=== PATIENT | male | born 1970 | race Caucasian/White ===

== ENCOUNTER 2017-09-26 18:29 | Inpatient (IN) | payer BC ==
[~2017-09-26] VITALS: Ht 182.9 cm; Wt 140.8 kg
[~2017-09-26 18:29] MED LIST: ZITHROMAX250 MG PO
[2017-09-26 19:48] LABS: HEMATOCRIT 43.1 % (38.0-50.0); HEMOGLOBIN 14.3 G/DL (12.5-16.6); MCH 31.9 PG (29.0-34.0); MCHC 33.2 G/DL (30.0-36.0); MCV 96.2 FL (86-99); PLATELET COUNT 172 K/uL (156-360); RBC DIS.WIDTH-CV 14.1 % (11.8-14.6); RBC DIS.WIDTH-SD 49.9 % (39-53); RED BLOOD COUNT 4.48 M/uL (4.00-5.50); WHITE BLOOD COUNT 8.7 K/uL (4.1-10.2)
[2017-09-26 19:58] LABS: ALBUMIN 3.7 g/dL (3.2-4.8); CHLORIDE 106 mEq/L (99-109); POTASSIUM 3.2 mEq/L (3.7-5.4); SODIUM 142 mEq/L (136-147)
[2017-09-26 20:01] LABS: GLUCOSE 99 mg/dL (70-99); TOTAL PROTEIN 6.8 g/dL (6.4-8.3)
[2017-09-26 20:03] LABS: TOTAL BILIRUBIN 1.5 mg/dL (0.0-1.0)
[2017-09-26 20:04] LABS: ALKALINE PHOSPHATASE 117 IU/L (3-129); CREATININE 1.3 mg/dL (0.6-1.3); GFR ESTIMATE (CALCULATED) > 59 mL/min/ (58.99-99999)
[2017-09-26 20:05] LABS: UREA NITROGEN (BUN) 15 mg/dL (9-23)
[2017-09-26 20:06] LABS: AST (GOT) 21 IU/L (2-34)
[2017-09-26 20:07] LABS: ALT (GPT) 25 IU/L (3-49)
[2017-09-26 20:57] LABS: APPEARANCE CLEAR ((CLEAR)); BILIRUBIN NEGATIVE; BLOOD NEGATIVE; COLOR YELLOW ((YELLOW)); GLUCOSE (STRIP) NEGATIVE; KETONES NEGATIVE; LEUKOCYTES NEGATIVE; NITRITE NEGATIVE; PROTEIN (STRIP) 100; SPECIFIC GRAVITY 1.013 (1.000-1.030); UROBILINOGEN 0.2 MG/DL (0.2-1.0)
[2017-09-26 21:09] LABS: BACTERIA RARE /HPF; EPITHELIAL CELLS RARE /HPF; MUCUS TRACE /LPF; RED BLOOD CELLS 0-5 /HPF (0-5); UCUL ADDED? NO; WHITE BLOOD CELLS 0-5 /HPF (0-5)
[2017-09-26] MEDS ORDERED: ADVIL200 MG PO (23:20)
[2017-09-26] MEDS ORDERED: LITE COAT ASPI325 M1 PO (23:20)
[2017-09-27] VITALS (7 sets, daily range): BP systolic 159–198; BP diastolic 101–124
[2017-09-27 09:47] LABS: CHLORIDE 106 MEQ/L (99-109); CREATININE 1.3 MG/DL (0.6-1.3); GFR ESTIMATE (CALCULATED) > 59 mL/min/ (58.99-99999); GLUCOSE 88 mg/dL (70-99); HDL CHOLESTEROL 32 MG/DL (Desirable>=40); LDL CHOLESTEROL 92 mg/dL (Desirable<100); NON-HDL CHOLESTEROL 106 mg/dL (Desirable<160); POTASSIUM 3.6 MEQ/L (3.7-5.4); SODIUM 147 MEQ/L (136-147); TOTAL CHOLESTEROL 138 mg/dL (Desirable<200); TRIGLYCERIDES 69 MG/DL (Normal: <150); UREA NITROGEN (BUN) 14 mg/dL (9-23)
[2017-09-27 10:51] LABS: HEMOGLOBIN A1c (GLYCOHEMOGLOB) 5.8 % (Below 5.7)
[2017-09-28 04:08] VITALS: BP 170/110
[2017-09-28 07:55] VITALS: BP 184/110
[2017-09-28 08:35] LABS: HEMATOCRIT 42.2 % (38.0-50.0); HEMOGLOBIN 13.6 G/DL (12.5-16.6); MCH 31.4 PG (29.0-34.0); MCHC 32.2 G/DL (30.0-36.0); MCV 97.5 FL (86-99); PLATELET COUNT 167 K/uL (156-360); RBC DIS.WIDTH-CV 14.5 % (11.8-14.6); RBC DIS.WIDTH-SD 52.6 % (39-53); RED BLOOD COUNT 4.33 M/uL (4.00-5.50); WHITE BLOOD COUNT 6.3 K/uL (4.1-10.2)
[2017-09-28 08:58] LABS: CHLORIDE 103 MEQ/L (99-109); CREATININE 1.2 MG/DL (0.6-1.3); GFR ESTIMATE (CALCULATED) > 59 mL/min/ (58.99-99999); GLUCOSE 97 mg/dL (70-99); MAGNESIUM 1.9 mg/dl (1.3-2.7); POTASSIUM 3.4 MEQ/L (3.7-5.4); SODIUM 143 MEQ/L (136-147); UREA NITROGEN (BUN) 16 mg/dL (9-23)
[2017-09-28 12:02] VITALS: BP 163/105
[2017-09-28 16:00] VITALS: BP 157/99
[2017-09-28 23:29] VITALS: BP 172/92
[2017-09-29 03:41] VITALS: BP 167/100
[2017-09-29 06:43] LABS: CHLORIDE 103 MEQ/L (99-109); CREATININE 1.4 MG/DL (0.6-1.3); GFR ESTIMATE (CALCULATED) 58 mL/min/ (58.99-99999); GLUCOSE 90 mg/dL (70-99); POTASSIUM 3.6 MEQ/L (3.7-5.4); SODIUM 144 MEQ/L (136-147); UREA NITROGEN (BUN) 21 mg/dL (9-23)
[2017-09-29 08:03] VITALS: BP 165/96
[2017-09-29 12:13] VITALS: BP 120/75
[2017-09-29 15:50] VITALS: BP 133/97
[2017-09-29 19:13] VITALS: BP 141/88
[2017-09-29 23:10] VITALS: BP 139/89
[2017-09-30 03:05] VITALS: BP 135/87
[2017-09-30 06:20] LABS: CHLORIDE 105 MEQ/L (99-109); CREATININE 1.4 MG/DL (0.6-1.3); GFR ESTIMATE (CALCULATED) 58 mL/min/ (58.99-99999); GLUCOSE 91 mg/dL (70-99); POTASSIUM 3.4 MEQ/L (3.7-5.4); SODIUM 143 MEQ/L (136-147); UREA NITROGEN (BUN) 23 mg/dL (9-23)
[2017-09-30 07:53] VITALS: BP 164/97
[2017-09-30 07:54] LABS: MAGNESIUM 2.1 mg/dl (1.3-2.7)
[2017-09-30 12:33] VITALS: BP 139/87
[2017-09-30 13:49] LABS: PCO2 36 mm Hg (35-45); PO2 70 mm Hg (80-100); pH 7.51 (7.35-7.45)
[2017-09-30 13:50] LABS: BASE EXCESS 5.7 mEq/L (-3 to +3); BICARBONATE 28.7 mEq/L (22-26); CARBOXY HGB 2.4 % (0-5); COMMENTS - BLOOD GASES A+C+; METHEMOGLOBIN 1.3 % (0-1.5); SITE LR; TOTAL RESP RATE 16 resp/min
[2017-09-30 16:15] VITALS: BP 132/88
[2017-09-30 19:47] VITALS: BP 137/77
[2017-10-01 00:16] VITALS: BP 162/85
[2017-10-01 03:38] VITALS: BP 147/96
[2017-10-01 07:53] VITALS: BP 137/80
[2017-10-01 10:52] LABS: HEMATOCRIT 49.3 % (38.0-50.0); HEMOGLOBIN 15.5 G/DL (12.5-16.6); MCH 30.8 PG (29.0-34.0); MCHC 31.4 G/DL (30.0-36.0); MCV 97.8 FL (86-99); PLATELET COUNT 211 K/uL (156-360); RBC DIS.WIDTH-CV 14.4 % (11.8-14.6); RBC DIS.WIDTH-SD 52.2 % (39-53); RED BLOOD COUNT 5.04 M/uL (4.00-5.50); WHITE BLOOD COUNT 5.4 K/uL (4.1-10.2)
[2017-10-01 11:02] LABS: INTER. NORMALIZED RATIO 1.1
[2017-10-01 11:05] LABS: PTT 33.1 SEC (25-37)
[2017-10-01 11:20] LABS: CHLORIDE 104 MEQ/L (99-109); CREATININE 1.2 MG/DL (0.6-1.3); GFR ESTIMATE (CALCULATED) > 59 mL/min/ (58.99-99999); SODIUM 142 MEQ/L (136-147); UREA NITROGEN (BUN) 26 mg/dL (9-23)
[2017-10-01 11:21] LABS: GLUCOSE 150 mg/dL (70-99)
[2017-10-01 12:12] VITALS: BP 127/72
[2017-10-01 16:25] VITALS: BP 121/71
[2017-10-01 20:15] VITALS: BP 139/90
[2017-10-02 01:13] VITALS: BP 131/89
[2017-10-02 05:09] VITALS: BP 134/92
[2017-10-02 06:54] VITALS: BP 146/71
[2017-10-02 11:35] VITALS: BP 141/87
[2017-10-02] MEDS ORDERED: LOPRESSOR50 MG PO (13:19)
[2017-10-02] MEDS ORDERED: ASPIR-LOW81 MG PO (13:19)
[2017-10-02] MEDS ORDERED: FUROSEMIDE40 MG PO (13:19)
[2017-10-02] MEDS ORDERED: ENALAPRIL MALEA10 MG PO (13:19)
[2017-10-02] MEDS ORDERED: PRAVASTATIN SOD40 MG PO (13:19)
[2017-10-02] MEDS ORDERED: NIFEDIPINE ER60 MG PO (13:19)
== END 2017-10-02 18:02 | disposition home or self-care (01) | DRG 287 ==
LOC: EME 18:29 → EDOF 23:46 → ENRESERV 23:47 → 5SOUTH 09-27 01:33 → ENRESERV 10-01 14:48 → 5SOUTH 10-01 14:48 → ENRESERV 10-01 15:08 → 4EAST 10-01 15:54
PROVIDERS: Hospitalist; Internal Medicine Pulmonary Disease; Nurse Practitioner Family
DX: I11.0 Hypertensive heart disease with heart failure (principal); I50.31 Acute diastolic (congestive) heart failure; I16.0 Hypertensive urgency; E87.6 Hypokalemia; I43 Cardiomyopathy in diseases classified elsewhere; E66.2 Morbid (severe) obesity with alveolar hypoventilation; E78.5 Hyperlipidemia, unspecified; F10.10 Alcohol abuse, uncomplicated; I27.20 Pulmonary hypertension, unspecified; G47.00 Insomnia, unspecified; Z68.42 Body mass index [BMI] 45.0-49.9, adult; Z79.82 Long term (current) use of aspirin; Z91.14 Patient's other noncompliance with medication regimen; Z91.11 Patient's noncompliance with dietary regimen; Z87.891 Personal history of nicotine dependence
CPT/HCPCS: 36600; 71046; 76870; 78452; 80048; 80053; 80061; 81003; 82803; 83036; 83735; 83880; 85027; 85610; 85730; 93005; 93306; 93971; 94660; 99281; 99285; A9500; C1769; C1887; G0378; J0360; J1644; J1650; J1940; J2250; J2785; J3010